=== PATIENT | male | born 2000 | race Caucasian/White ===

== ENCOUNTER 2021-10-21 01:17 | Inpatient (IN) ==
[2021-10-21] MEDS ORDERED: SODIUM CHLORIDE 0.9% 1000ML 1,000 ML IV STA (01:27)
--- NOTE | 2021-10-21 01:51 | Emergency Department Note ---
Impression & Plan Elevated troponin ADMIT ED Provider Note HPI: The patient is a 21-year-old male with history of tetralogy of Fallot, status post pulmonic valve replacement about 3 years ago, who presents the emergency department with a chief complaint of heart palpitations. Patient states that he was playing basketball earlier this evening and felt a sensation as if his heart was racing. He states this lasted approximately 2 hours, he went back to his apartment and drink some water. He had episode of nausea and vomiting. Patient states he then decided to come to the emergency department. On arrival here to the ED he was noted to be tachycardic at about 123, he had an episode of vomiting in triage and tells me that he "passed out". On my initial assessment the patient is resting comfortably in bed, states he is feeling improved, his heart rate is in the 70s, he is saturating well on room air on my initial assessment. He denies any chest pain throughout any of these episodes, denies any current chest pain or shortness of breath. 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, he tells me he is on sotalol and takes a baby aspirin daily. Patient tells me he is on the sotalol for an arrhythmia but he is unsure of what it is, states he has had electrophysiology studies done previously and they were not able to "recreate the arrhythmia" and therefore he is unsure of what exactly his arrhythmia is. Patient has been here in the emergency department before for various issues and in our chart it does say he has a history of supraventricular tachycardia. ROS: -Cardio: Palpitations -GI: N/V *10 point review systems was conducted and is otherwise negative unless stated above *Outpatient medications and allergy history reviewed PE: General: Alert, NAD HEENT: Normocephalic, atraumatic Eyes: Extraocular eye movement is intact, no scleral erythema Pulmonary: Clear to auscultation bilaterally, no wheezing Cardio: Regular rate and rhythm GI: Abdomen is soft, nontender : No suprapubic tenderness MSK: No evidence of trauma or malformation of the extremities, no edema Skin: No evidence of rash Neuro: Alert, no focal deficits Psychiatric: Cooperative monitoring tech: - An order was placed for continuous cardiac monitoring - Patient was noted to be in sinus rhythm with rate of 77 Preliminary Findings Only See Final Report For Complete Findings CTA CHEST: Stent noted at the pulmonary outflow tract. Right aortic arch. Mildly limited exam for pulmonary emboli given respiratory motion artifact. No visualized pulmonary emboli. Radiologist: Ender Faustin MD CT ABDOMEN & PELVIS With Contrast: Diffuse gallbladder wall thickening with pericholecystic fluid. Findings may be due to cholecystitis. Associated with this is periportal edema which is likely reactive. Consider HIDA imaging. Additional perihepatic ascites which is nonspecific. The appendix is not definitively identified. No evidence of right lower quadrant inflammatory straining. Mild pelvic free fluid which is nonspecific. Radiologist: Ender Faustin MD US GALLBLADDER: Asymmetric gallbladder wall thickening measuring up to 9 mm which may be due to adenomyomatosis. Gallbladder wall edema also possible. No biliary dilatation. Otherwise, no acute findings. Radiologist: Ender Faustin MD EKG: #1 Rate: 69 Rhythm: Sinus rhythm Intervals: Within normal limits ST changes: No ST elevation, mild ST depressions noted in the lateral leads Time: 0137 EKG: #2 Rate: 66 Rhythm: Normal sinus rhythm Intervals: Within normal limits ST changes: No ST elevation Time: 0151 Medical Decision Making: Patient presented to the emergency department with a chief complaint of palpitations, he has a history of SVT, has a history of Tetralogy of Fallot, he is noted to have an artificial pulmonic valve, patient tells me he takes sotalol as an antiarrhythmic daily, states that he also takes an aspirin daily. He is otherwise not on any medications. By the time I assessed the patient in the room, his heart rate is within normal limits, he tells me he is beginning to feel improved. Denies any abdominal pain, denies any chest pain, he is saturating well on room air on my initial assessment. Patient tells me he had a brief episode of syncope in triage tonight. IV was established, lab work ordered, patient was given an IV fluid bolus. He denies any nausea or chest pain, denies any shortness of breath. Lab work shows evidence of slight leukocytosis of 12.4, patient is also noted to have a creatinine elevation of 1.64, he is noted to have a moderate transaminitis and elevated bilirubin at 1.7. Patient states he did have 2 episodes of vomiting earlier this evening although he states that he gagged himself because he was feeling "bloated". Troponin is noted to be elevated at 0.48, patient states he has had troponin elevations in the past associated with his SVT episodes. He denies any active chest pain, his EKG initially showed some apparent ST depressions in the lateral leads although repeat EKG performed about 14 minutes later does not show any of these changes, no ST elevation. D-dimer is elevated therefore CT angiography of the chest was obtained, this does not show any evidence of pulmonary embolism. CT imaging of the abdomen and pelvis was obtained given the transaminitis and vomiting, this initially shows evidence of what appears to be acute cholecystitis with some surrounding periportal edema, ultrasound imaging of the gallbladder was also obtained and this does not show any evidence of acute cholecystitis. Patient does not have any right upper quadrant tenderness. I did discuss case with on-call general surgery midlevel provider, Alin Mitchell, who did evaluate the patient at the bedside here. At this time I have lower suspicion for acute cholecystitis, will plan for gastroenterology consultation while patient is admitted to the hospital. Repeat troponin is ordered, this did result increasing to 1.39, patient remains asymptomatic, denies any chest pain or shortness of breath. I did at this point discussed the case with on-call interventional cardiology, Dr. Walton, given that the patient is asymptomatic and thought is likely that his troponin elevated in the setting of demand ischemia from underlying SVT that was prolonged, Dr. Walton is in agreement that the patient does not require an emergent cardiac catheterization at this point. He will evaluate the patient this morning in consultation. We Will order heparin drip now given uptrending troponin, I discussed all the above findings with the patient he is in agreement for a dmission for further management. Patient was admitted in stable condition. * CRITICAL CARE TIME: (45) minutes -Initiation of heparin drip in the setting of elevated troponin and sensation of palpitations, time spent at bedside, interpretation of diagnostic studies, dis cussion with other physicians including interventional cardiology and midlevel provider for general surgery, arrangement of admission and discussion with hospitalist service Diagnosis: 1. Elevated troponin 2. Acute kidney injury 3. Transaminitis 4. Elevated bilirubin 5. Vomiting 6. Syncope 7. History of SVT Disposition: ADMIT Eric Morley DO Emergency Medicine Past Med/Surg History Medical History H/O supraventricular tachycardia Long-term use of aspirin therapy Surgical History Heart valve replaced Social History Smoking Status: Never smoker Feels Safe at Home: Yes Allergies Allergies Allergy/AdvReac Type Severity Reaction Status Date / Time cephalexin [From Keflex] Allergy Unknown Unknown Verified 10/21/21 02:28 Home Meds Home Medications Medication Instructions Recorded Confirmed sotalol 80 mg tablet 40 mg PO DAILY 05/26/19 10/21/21 aspirin 81 mg tablet,delayed 81 mg PO DAILY 10/21/21 10/21/21 release Results & Data (ED) Vital Signs Vital Signs - 24 hr 10/21/21 01:22 10/21/21 01:40 10/21/21 02:00 Temperature 36.3 C L Temperature Source Temporal Artery Scan Pulse Rate 123 H Pulse Rate [Apical] 70 66 Respiratory Rate 19 22 20 Respiratory Effort / Characteristics Non-Labored Spontaneous Non-Labored Spontaneous Non-Labored Spontaneous Respiratory Depth Normal Normal Normal Respiratory Pattern Blood Pressure [Right Arm] 129/86 130/97 Blood Pressure Mean [Right Arm] 100 108 Pulse Oximetry 91 100 100 Oxygen Delivery Method Room Air Room Air Room Air Sepsis Recent Fever Within 48 Hours No Sepsis New/Unexplained Change in Mental Status N/A Sepsis Action Taken by Nursing No Action Required 10/21/21 03:03 10/21/21 04:00 Temperature Temperature Source Pulse Rate Pulse Rate [Apical] 74 58 L Respiratory Rate 18 18 Respiratory Effort / Characteristics Non-Labored Spontaneous Non-Labored Spontaneous Respiratory Depth Normal Normal Respiratory Pattern Regular Blood Pressure [Right Arm] 132/87 130/83 Blood Pressure Mean [Right Arm] 102 98 Pulse Oximetry 100 98 Oxygen Delivery Method Room Air Room Air Sepsis Recent Fever Within 48 Hours Sepsis New/Unexplained Change in Mental Status Sepsis Action Taken by Nursing Laboratory Data Result diagrams: 10/21/21 01:35 10/21/21 01:35 Lab Results 02/10/22 02/10/22 02/10/22 Range/Units 01:35 01:35 01:35 WBC 12.44 H (4.8-10.8) K/uL RBC 5.01 (4.7-6.1) M/uL Hgb 15.3 (14.0-18.0) g/dL Hct 44.4 (42-52) % MCV 88.6 (80-100) fL MCH 30.5 (25-34) pg MCHC 34.5 (32-36) g/dL RDW Std Deviation 40.5 (36.4-46.3) fL RDW Coeff of Patricia 12.7 (11.5-14.5) % Plt Count 251 (130-400) K/uL MPV 10.2 (7.4-10.4) fL Immature Gran % (Auto) 0.3 % Neut % (Auto) 77.5 % Lymph % (Auto) 13.7 % Duchesne % (Auto) 7.0 % Eos % (Auto) 1.3 % Baso % (Auto) 0.2 % Neut # (Auto) 9.63 H (1.4-6.5) K/uL Lymph # (Auto) 1.71 (1.2-3.4) K/uL Duchesne # (Auto) 0.87 H (0.11-0.59) K/uL Eos # (Auto) 0.16 (0-0.5) K/uL Baso # (Auto) 0.03 (0-0.2) K/uL Immature Gran # (Auto) 0.04 H (0.00-0.02) K/uL PT 10.9 (9.0-12.0) Seconds INR 1.1 (0.9-1.1) APTT 22.5 (21.0-31.0) Seconds PTT Ratio 0.9 D-Dimer Cancelled 1290 H* Sodium (136-145) mmol/L Potassium (3.5-5.1) mmol/L Chloride (98-107) mmol/L Carbon Dioxide (21-32) mmol/L Anion Gap (3-11) BUN (6-23) mg/dl Creatinine (0.6-1.4) mg/dl Est Cr Clr Drug Dosing Est GFR ( Amer) ml/min Est GFR (Non-Af Amer) ml/min BUN/Creatinine Ratio (10-20) Glucose (70-99(Fasting)) mg/dl Calcium (8.5-10.1) mg/dl Magnesium (1.7-2.4) mg/dl Total Bilirubin (0.2-1.0) mg/dl AST (13-39) U/L ALT (7-52) U/L Alkaline Phosphatase (34-104) U/L Troponin I (0-0.04) ng/ml Total Protein (6.0-8.3) gm/dl Albumin (3.4-5.0) gm/dl Globulin (2.5-4.0) gm/dl Albumin/Globulin Ratio (0.9-2) Lipase (11-82) U/L TSH (0.300-4.500) uIu/ml Free T4 (0.61-1.60) ng/dl SARS-CoV-2, RNA, NAAT (NEGATIVE) 10/21/21 10/21/21 10/21/21 Range/Units 01:35 02:32 02:32 WBC (4.8-10.8) K/uL RBC (4.7-6.1) M/uL Hgb (14.0-18.0) g/dL Hct (42-52) % MCV (80-100) fL MCH (25-34) pg MCHC (32-36) g/dL RDW Std Deviation (36.4-46.3) fL RDW Coeff of Patricia (11.5-14.5) % Plt Count (130-400) K/uL MPV (7.4-10.4) fL Immature Gran % (Auto) % Neut % (Auto) % Lymph % (Auto) % Duchesne % (Auto) % Eos % (Auto) % Baso % (Auto) % Neut # (Auto) (1.4-6.5) K/uL Lymph # (Auto) (1.2-3.4) K/uL Duchesne # (Auto) (0.11-0.59) K/uL Eos # (Auto) (0-0.5) K/uL Baso # (Auto) (0-0.2) K/uL Immature Gran # (Auto) (0.00-0.02) K/uL PT (9.0-12.0) Seconds INR (0.9-1.1) APTT (21.0-31.0) Seconds PTT Ratio D-Dimer Sodium 132 L (136-145) mmol/L Potassium 4.0 (3.5-5.1) mmol/L Chloride 100 (98-107) mmol/L Carbon Dioxide 21 (21-32) mmol/L Anion Gap 11 (3-11) BUN 27 H (6-23) mg/dl Creatinine 1.64 H (0.6-1.4) mg/dl Est Cr Clr Drug Dosing Not Reportable Est GFR ( Amer) 68.3 ml/min Est GFR (Non-Af Amer) 58.9 ml/min BUN/Creatinine Ratio 16.5 (10-20) Glucose 194 H (70-99(Fasting)) mg/dl Calcium 9.0 (8.5-10.1) mg/dl Magnesium 1.7 (1.7-2.4) mg/dl Total Bilirubin 1.7 H (0.2-1.0) mg/dl AST 411 H (13-39) U/L ALT 235 H (7-52) U/L Alkaline Phosphatase 101 (34-104) U/L Troponin I 0.48 H* (0-0.04) ng/ml Total Protein 6.7 (6.0-8.3) gm/dl Albumin 4.3 (3.4-5.0) gm/dl Globulin 2.4 L (2.5-4.0) gm/dl Albumin/Globulin Ratio 1.8 (0.9-2) Lipase 23 (11-82) U/L TSH 7.185 H (0.300-4.500) uIu/ml Free T4 1.12 (0.61-1.60) ng/dl SARS-CoV-2, RNA, NAAT (NEGATIVE) 10/21/21 10/21/21 Range/Units 03:40 04:05 WBC (4.8-10.8) K/uL RBC (4.7-6.1) M/uL Hgb (14.0-18.0) g/dL Hct (42-52) % MCV (80-100) fL MCH (25-34) pg MCHC (32-36) g/dL RDW Std Deviation (36.4-46.3) fL RDW Coeff of Patricia (11.5-14.5) % Plt Count (130-400) K/uL MPV (7.4-10.4) fL Immature Gran % (Auto) % Neut % (Auto) % Lymph % (Auto) % Duchesne % (Auto) % Eos % (Auto) % Baso % (Auto) % Neut # (Auto) (1.4-6.5) K/uL Lymph # (Auto) (1.2-3.4) K/uL Duchesne # (Auto) (0.11-0.59) K/uL Eos # (Auto) (0-0.5) K/uL Baso # (Auto) (0-0.2) K/uL Immature Gran # (Auto) (0.00-0.02) K/uL PT (9.0-12.0) Seconds INR (0.9-1.1) APTT (21.0-31.0) Seconds PTT Ratio D-Dimer Sodium (136-145) mmol/L Potassium (3.5-5.1) mmol/L Chloride (98-107) mmol/L Carbon Dioxide (21-32) mmol/L Anion Gap (3-11) BUN (6-23) mg/dl Creatinine (0.6-1.4) mg/dl Est Cr Clr Drug Dosing Est GFR ( Amer) ml/min Est GFR (Non-Af Amer) ml/min BUN/Creatinine Ratio (10-20) Glucose (70-99(Fasting)) mg/dl Calcium (8.5-10.1) mg/dl Magnesium (1.7-2.4) mg/dl Total Bilirubin (0.2-1.0) mg/dl AST (13-39) U/L ALT (7-52) U/L Alkaline Phosphatase (34-104) U/L Troponin I 1.39 H* (0-0.04) ng/ml Total Protein (6.0-8.3) gm/dl Albumin (3.4-5.0) gm/dl Globulin (2.5-4.0) gm/dl Albumin/Globulin Ratio (0.9-2) Lipase (11-82) U/L TSH (0.300-4.500) uIu/ml Free T4 (0.61-1.60) ng/dl SARS-CoV-2, RNA, NAAT NEGATIVE (NEGATIVE) Administered Medications Discontinued Medications Aspirin (Aspirin Chew 324 Mg) 324 mg PO NOW STA Stop: 10/21/21 02:51 Last Admin: 10/21/21 03:02 Dose: 324 mg Documented by: [id number] Sodium Chloride (Nss 1000ml) 1,000 mls @ 999 mls/hr IV .Q1H1M STA Stop: 10/21/21 02:27 Last Infusion: 10/21/21 02:44 Dose: 0 mls/hr Documented by: [id number] Admin: 10/21/21 01:40 Dose: 999 mls/hr Documented by: [id number] Sodium Chloride (Nss 1000ml) 1,000 mls @ 999 mls/hr IV .Q1H1M ONE Stop: 10/21/21 03:28 Last Infusion: 10/21/21 03:46 Dose: 0 mls/hr Documented by: [id number] Admin: 10/21/21 02:38 Dose: 999 mls/hr Documented by: [id number] Ioversol (Optiray 320 125ml) 120 ml IV ONCE ONE Stop: 10/21/21 03:11 Last Admin: 10/21/21 03:13 Dose: 1 ml Documented by: [id number] Discharge Plan Visit Data Chief Complaint: Tachycardia Stated Complaint: HEART RATE 200,HAS BEENS SINCE ABOUT 23:00 ED Provider: Eric Morley Discharge Problem: Elevated troponin Forms Stand Alone Forms: [facility] Prescriptions Prescriptions: No Action sotalol 80 mg Tablet 40 mg PO DAILY RF: 0 aspirin [Aspir-Low] 81 mg Tablet,Delayed Release (Dr/Ec) 81 mg PO DAILY RF: 0 Referrals Referrals: PCP,NO [Physician] -
[2021-10-21 01:55] LABS: Basophils # (auto) 0.03 K/uL (0-0.2); Basophils % (auto) 0.2 %; Eosinophils # (auto) 0.16 K/uL (0-0.5); Eosinophils % (auto) 1.3 %; Hematocrit (blood only) 44.4 % (42-52); Hemoglobin 15.3 g/dL (14.0-18.0); Immature Granulocytes # (auto) 0.04 K/uL (0.00-0.02); Immature Granulocytes % (auto) 0.3 %; Lymphocytes # (auto) 1.71 K/uL (1.2-3.4); Lymphocytes % (auto) 13.7 %; Mean Corpuscular Hemoglobin 30.5 pg (25-34); Mean Corpuscular Hgb Conc 34.5 g/dL (32-36); Mean Corpuscular Volume 88.6 fL (80-100); Mean Platelet Volume 10.2 fL (7.4-10.4); Monocytes # (auto) 0.87 K/uL (0.11-0.59); Neutrophils # (auto) 9.63 K/uL (1.4-6.5); Neutrophils % (auto) 77.5 %; Platelet Count 251 K/uL (130-400); RDW Coefficient of Variation 12.7 % (11.5-14.5); RDW Standard Deviation 40.5 fL (36.4-46.3); Red Blood Count 5.01 M/uL (4.7-6.1); White Blood Count 12.44 K/uL (4.8-10.8)
[2021-10-21 02:13] LABS: INR 1.1 (0.9-1.1); Partial Thromboplastin Ratio 0.9; Partial Thromboplastin Time 22.5 Seconds (21.0-31.0); Prothrombin Time 10.9 Seconds (9.0-12.0)
[2021-10-21 02:18] LABS: Alanine Aminotransferase 235 U/L (7-52); Albumin Globulin Ratio 1.8 (0.9-2); Albumin Level 4.3 gm/dl (3.4-5.0); Alkaline Phosphatase 101 U/L (34-104); Anion Gap 11 (3-11); Aspartate Aminotransferase 411 U/L (13-39); BUN Creatinine Ratio 16.5 (10-20); Bilirubin,Total 1.7 mg/dl (0.2-1.0); Blood Urea Nitrogen 27 mg/dl (6-23); Carbon Dioxide 21 mmol/L (21-32); Chloride 100 mmol/L (98-107); Est GFR (African American) 68.3 ml/min; Est GFR (Non-African American) 58.9 ml/min; Globulin 2.4 gm/dl (2.5-4.0); Glucose 194 mg/dl (70-99(Fasting)); Lipase 23 U/L (11-82); Sodium 132 mmol/L (136-145); Total Protein 6.7 gm/dl (6.0-8.3)
[2021-10-21 02:27] LABS: D Dimer 1290 ug/L FEU (0-500)
[2021-10-21] MEDS ORDERED: SODIUM CHLORIDE 0.9% 1000ML 1,000 ML IV ONE (02:28)
[2021-10-21 02:50] LABS: Troponin I 0.48 ng/ml (0-0.04)
[2021-10-21] MEDS ORDERED: ASPIRIN CHEW 324 MG PO STA (02:50)
[2021-10-21] MEDS ORDERED: OPTIRAY 320 125ml IV ONE (03:10)
[2021-10-21 03:30] LABS: Thyroid Stimulating Hormone 7.185 uIu/ml (0.300-4.500)
[2021-10-21 04:07] LABS: T4 Free Thyroxine 1.12 ng/dl (0.61-1.60)
--- NOTE | 2021-10-21 04:39 | Surgery Consultation ---
Date of Consultation October 21, 2021 Assessment & Plan (1) Elevated LFTs: I discussed with the treating emergency room physician and the patient is being admitted on the hospitalist service due to his underlying cardiac presentation. He feels that the patient's elevated troponin may be likely to demand ischemia from patient's prolonged episode of tachycardia. Concerning the patient's elevated LFTs we recommend proceeding as follows: Patient does not have any evidence of cholecystitis on physical exam as noted previously in this note the patient's abdominal exam is entirely benign and the patient also does not report any symptoms consistent with cholecystitis (no abdominal pain, no fever; previous vomiting was self-induced) The patient's abdominal CT scan findings and abdominal ultrasound are nonspecific cholecystitis, therefore GI consultation is recommended Clinical suspicion for cholecystitis remains consideration can be given to performing a HIDA scan If additional evaluation suspicious for cholecystitis, any potential surgical invention would need to be delayed until patient's cardiac situation is considered stabilized Supervising Physician Co-Signing Physician Notes I personally saw and evaluated the patient with Servando Mitchell PA-C and agree with the assessment and plan 21-year-old male with incidental finding of gallbladder adenomyomatosis here with cardiac complaints CT, ultrasound images and results reviewed, no cholelithiasis noted Clinically he has no signs of acute cholecystitis I would recommend a GI consult to work-up elevation of his LFTs No plans for any cholecystectomy at this time We will have him follow-up with me as an outpatient to discuss his gallbladder adenomyomatosis History of Present Illness Reason for Consultation: Cholecystitis History of Present Illness This is a 21-year-old male 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 Patient has a complex medical history as he noted he had Tetralogy of Fallot as a child. The patient said that he did require open heart surgery as a child but he is unsure of the exact procedure that was performed and then he notes at age 18 he had a pulmonary valve replacement. Patient further relates that he does have an underlying history of SVT for which he takes sotalol. Patient notes in the past 4 years he has had approximately 4 episodes of supraventricular tachycardia that usually self resolves without any active intervention. Patient reports he was playing basketball yesterday afternoon when he noticed palpitations. As he has had this before he did not immediately seek medical attention, but his palpitations persisted for greater than 2.5 hours so he decided to come to the emergency department. While in the emergency department waiting room the patient reportedly had a syncopal episode that lasted a few seconds. He did not fall or hit his head. With his current presentation the patient specifically denied any chest pain or shortness of breath. He also denied any lightheadedness but again had a syncopal episode and reported palpitations. Patient did add that when his tachycardia and palpitations began he began to drink large volume of water in order to stay hydrated. He notes this is water made him feel bloated so he self-induced vomiting x2 and felt somewhat better. In the emergency department the patient had EKG that showed ST depressions in leads I, II, V4, V5, V6. Labs were performed showing a white blood cell count of 12.4. Hemoglobin, hematocrit, and platelet count were all within normal range. A D-dimer was elevated at 1290. Chemistry profile showed sodium was 132 potassium was 4.0 BUN and creatinine were noted to be 27 and 1.6. Patient was noted to have elevated LFTs with a total bilirubin of 1.7, and AST of 411, and an ALT of 235. Alkaline phosphatase was within the normal range. Patient was also noted to have an elevated TSH at 7.1. His free T4 was within normal range. Patient's initial troponin was elevated at 0.48. Covid test was performed and was noted be negative. Chest x-ray showed no evidence of pneumonia. Because of the patient's elevated D-dimer a CT scan of the chest was pursued which was negative for pulmonary emboli. Because of the patient's elevated LFTs treat emergency physician ordered a CT scan of the abdomen as well as an ultrasound. CT scan of the abdomen was performed first that showed diffuse gallbladder wall thickening with pericholecystic fluid there is some associated periportal edema that was felt to be reactive. Nonspecific perihepatic ascites was noted. Pending radiologist did not feel that this definitively showed cholecystitis and suggested considering a HIDA scan. Following this study a gallbladder ultrasound was performed that showed an asymmetric gallbladder with wall thickening of approximate 9 mm that was felt to be possibly due to adenomyomatosis. Small amount of gallbladder edema was suggested with no biliary dilatation. No other findings for acute cholecystitis were noted on patient's abdominal ultrasound. General surgery was requested to see the patient due to his gallbladder wall findings. I did question the patient about this. He notes at no time did he ever experience any abdominal pain. He said other than his self-induced vomiting he has not had any additional nausea or vomiting. I questioned patient about his daily life for the past several weeks and he reports no episodes of postprandial abdominal pain. He denies any fevers, shakes, chills. [place] any prior abdominal surgeries. Time of my interview with the patient he had returned to normal sinus rhythm and he was resting comfortably in bed without any complaints, specifically no abdominal pain. Allergies Allergy/AdvReac Type Severity Reaction Status Date / Time cephalexin [From Keflex] Allergy Unknown Unknown Verified 10/21/21 02:28 Home Medications Medication Instructions Recorded Confirmed Type sotalol 80 mg tablet 40 mg PO DAILY 05/26/19 10/21/21 History aspirin 81 mg tablet,delayed 81 mg PO DAILY 10/21/21 10/21/21 History release Patient History Medical History (Updated 10/21/21 @ 05:25 by Christie Rivers DO) H/O supraventricular tachycardia Long-term use of aspirin therapy Tetralogy of Fallot Surgical History (Updated 10/21/21 @ 05:12 by Christie Rivers DO) Heart valve replaced History of heart surgery Social History (Updated 10/21/21 @ 05:12 by Christie Rivers DO) Smoking Status: Never smoker Hx Alcohol Use: Yes Alcohol type: beer Hx Substance Use: No Preferred Language: Mongolian Communication Ability: Effective Maintenance Leader Required: No Beliefs That Will Affect Care: None Current Living Situation: Alone Current Living Situation Comment: [employer] student Feels Safe at Home: Yes Safety Concerns: Feels Safe At This Time Assistive Devices: None Review of Systems Constitutional: no fever and no chills Eyes: no diplopia Ear, Nose, Mouth, Throat: no ear pain Respiratory: no cough and no dyspnea Cardiovascular: as per Subjective / HPI, + palpitations and + syncope Gastrointestinal: + bloating and + vomiting (Self-induced); no abdominal pain Genitourinary: no dysuria Musculoskeletal: no back pain Integumentary: no rash Neurologic: no localized weakness Physical Exam Constitutional: well developed and well nourished; no acute distress Eyes: no conjunctival abnormality ENMT: Ears: no hearing impairment and no external ear abnormality Mouth: no oropharynx abnormality Neck: trachea midline Respiratory: normal respiratory effort, lungs clear to auscultation Cardiovascular: Rate/Rhythm: regular rate and regular rhythm Heart Sounds: + murmur Gastrointestinal (Abdomen): Dilan exam is entirely benign. The abdomen is soft, nondistended, and nontender to palpation. There is specifically no pain with palpation of the right upper quadrant with deep palpation. Painter sign is noted to be negative. Musculoskeletal: No calf tenderness. No gross orthopedic abnormalities. Skin: no rashes Neurologic: moves all extremities Psychiatric: A+Ox3, euthymic affect Results & Data ([facility]) Vital Signs (Past 12 Hours) Vital Signs Temp Pulse Pulse Resp BP Pulse Ox 10/21/21 04:00 58 L 18 130/83 98 10/21/21 03:03 74 18 132/87 100 10/21/21 02:00 66 20 130/97 100 10/21/21 01:40 70 22 129/86 100 10/21/21 01:22 36.3 C L 123 H 19 91 PG Care Time/CCT Total # of Minutes Spent Total Time Spent with Patient: Total time spent is greater than 50% in coordination of care (as documented) at patient's floor/unit and/or counseling patient: Coding Level of Care Code 54764 Inpt Consult Level 5 Diagnoses Elevated LFTs R79.89
[2021-10-21] MEDS ORDERED: Heparin IV Adult Wt-Based Standard WITH Bolus Protocol IV STA (04:56)
--- NOTE | 2021-10-21 05:03 | History & Physical Report ---
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 Found with elevation of troponin and EKG changes. History of SVT with appx 4 episodes of palpitations in the past. EKG with NSR at 69bpm. Shortened MN interval at 102. No delta wave Electrolytes are optimized -Admit to medical with telemetry -Check 2D echo -Check ESR and CRP -Trend troponin -Continue Sotalol (2) Elevated troponin: Plan: Possibly secondary to supply-demand mismatch in setting of prolonged palpitations. Consider myocarditis with elevation of WBC count + troponin. Patient denies recent illness, vaccination, fever, chills, chest pain. -Heparin gtt initiated in ER - will continue for now -Cardiology consultation appreciated -Continue to trend troponin to peak (3) Elevated LFTs: Plan: Patient with elevation of AST, ALT and Tbili. CT Abdomen by STAT rad concerning for acute cholecystitis which was not seen on US. Patient has had NO abdominal pain, fever, RUQ discomfort. Do not strongly suspect acute cholecystitis. -Check ferritin, acetaminophen, acute hepatitis panel -Repeat LFTs -Consider HIDA scan, GI consultation pending results (4) SNEHA (acute kidney injury): Plan: Elevation of BUN to 27, Cr to 1.64 from baseline of 14 and 1.05. -LR at 125mL/hr x 1 liter -Repeat labs at 12:00 Plan: F/E/N - LR at 125mL/hr x 1, electrolytes WNL - will give 1gm Mg for level of 1.7, regular diet as tolerated Ppx - Heparin gtt Code - Full Dispo - Admit to medical with telemetry History of Present Illness Chief Complaint: Palpitations Primary Care Provider: [facility] Christian Brooks is a 21yo C male with history of Tetralogy of Fallot as a child s/p surgical repair, s/p pulmonic valve replacement at age 18. He has history of SVT for which he takes daily Sotalol as well as ASA. He has had 4 episodes of tachycardia over the last 4 years that has been self limiting. Patient was playing basketball last night when he felt his heart racing. This started around 23:00. He returned to his apartment and drank a lot of water to try to get the palpitations to stop. After drinking the water he felt bloated and nauseated so he induced vomiting x 1 episode. He presents to the ER due to prolonged duration of palpitations. Patient had a second episode of vomiting in the waiting room. He also reports a brief episode of lightheadedness and syncope which lasted only a few seconds. No head trauma. He denies chest pain, cough, SOB. Denies abdominal pain. Had some nausea and vomiting x 2 as above, otherwise, no abdominal complaints. Denies fever, chills, NELSON, malaise. Palpitations resolved around 01:15. Upon arrival patient tachycardic with HR of 123. His initial EKG showed ST depressions in leads I, II, V4-V6. Lab results as below, troponin elevated at 0.48 --> 1.39. Patient with abnormals LFTs - NOU=727, BCQ=412, Tbili=1.7. CT of the Abdomen and pelvis originally concerning for acute cholecystitis. Ultrasound does not support this. General Surgery was consulted re: LFT abnormality and possible cholecystitis Patient is resting comfortably. Sinus bradycardia noted on monitor. Has no complaints at this time. ER Course: ASA 324mg, NSS x 2L, Heparin gtt Allergies Allergy/AdvReac Type Severity Reaction Status Date / Time cephalexin [From Keflex] Allergy Unknown Unknown Verified 10/21/21 02:28 Home Medications Medication Instructions Recorded Confirmed Type sotalol 80 mg tablet 40 mg PO DAILY 05/26/19 10/21/21 History aspirin 81 mg tablet,delayed 81 mg PO DAILY 10/21/21 10/21/21 History release Past Med/Surg History Medical History (Updated 10/21/21 @ 05:25 by Christie Rivers DO) H/O supraventricular tachycardia Long-term use of aspirin therapy Tetralogy of Fallot Surgical History (Updated 10/21/21 @ 05:12 by Christie Rivers DO) Heart valve replaced History of heart surgery Social History (Updated 10/21/21 @ 05:12 by Christie Rivers DO) Smoking Status: Never smoker Hx Alcohol Use: Yes Hx Substance Use: No Feels Safe at Home: Yes Review of Systems Review of Systems: All systems reviewed & are unremarkable except as noted in HPI & below Physical Exam Physical Exam: General: patient resting comfortably, NAD, non-toxic in appearance, AA&O x 4 Skin: warm, dry, intact, no rashes or lesions HEENT: NC/AT, PERRL, EOMI, anicteric sclera, conjunctiva without injection, external ear normal to inspection and nontender, nares patent, moist mucus membranes, dentition intact, no oropharyngeal lesions, neck supple, trachea midline, no LAD, no thyromegaly, no JVD Heart: +S1/S2, regular, 3/6 RACHEL at LUSB and sternal border Lungs: equal air entry bilaterally, no rales/rhonchi/wheezes Abd: +BS, soft, NT/ND, no masses/organomegaly/ascites, no RUQ tenderness Ext: warm, 2+ pulses in UE/LE bilaterally, no clubbing/cyanosis or edema Neuro: nonfocal, patient AA&O x 4, speech intact, no facial droop, moving all extremities on command with equal strength 5/5 Results & Data Results & Data ([facility]) Vital Signs (Past 12 Hours) Vital Signs Temp Pulse Pulse Resp BP Pulse Ox 10/21/21 04:00 58 L 18 130/83 98 10/21/21 03:03 74 18 132/87 100 10/21/21 02:00 66 20 130/97 100 10/21/21 01:40 70 22 129/86 100 10/21/21 01:22 36.3 C L 123 H 19 91 Laboratory Results Laboratory Results WBC 12.44 K/uL (4.8-10.8) H 10/21/21 01:35 RBC 5.01 M/uL (4.7-6.1) 10/21/21 01:35 Hgb 15.3 g/dL (14.0-18.0) 10/21/21 01:35 Hct 44.4 % (42-52) 10/21/21 01:35 MCV 88.6 fL (80-100) 10/21/21 01:35 MCH 30.5 pg (25-34) 10/21/21 01:35 MCHC 34.5 g/dL (32-36) 10/21/21 01:35 RDW Std Deviation 40.5 fL (36.4-46.3) 10/21/21 01:35 RDW Coeff of Patricia 12.7 % (11.5-14.5) 10/21/21 01:35 Plt Count 251 K/uL (130-400) 10/21/21 01:35 MPV 10.2 fL (7.4-10.4) 10/21/21 01:35 Immature Gran % (Auto) 0.3 % 10/21/21 01:35 Neut % (Auto) 77.5 % 10/21/21 01:35 Lymph % (Auto) 13.7 % 10/21/21 01:35 [place] % (Auto) 7.0 % 10/21/21 01:35 Eos % (Auto) 1.3 % 10/21/21 01:35 Baso % (Auto) 0.2 % 10/21/21 01:35 Neut # (Auto) 9.63 K/uL (1.4-6.5) H 10/21/21 01:35 Lymph # (Auto) 1.71 K/uL (1.2-3.4) 10/21/21 01:35 [place] # (Auto) 0.87 K/uL (0.11-0.59) H 10/21/21 01:35 Eos # (Auto) 0.16 K/uL (0-0.5) 10/21/21 01:35 Baso # (Auto) 0.03 K/uL (0-0.2) 10/21/21 01:35 Immature Gran # (Auto) 0.04 K/uL (0.00-0.02) H 10/21/21 01:35 PT 10.9 Seconds (9.0-12.0) 10/21/21 01:35 INR 1.1 (0.9-1.1) 10/21/21 01:35 APTT 22.5 Seconds (21.0-31.0) 10/21/21 01:35 PTT Ratio 0.9 10/21/21 01:35 D-Dimer 1290 ug/L FEU (0-500) H* 10/21/21 01:35 D-Dimer Cancelled 10/21/21 01:35 Sodium 132 mmol/L (136-145) L 10/21/21 01:35 Potassium 4.0 mmol/L (3.5-5.1) 10/21/21 01:35 Chloride 100 mmol/L (98-107) 10/21/21 01:35 Carbon Dioxide 21 mmol/L (21-32) 10/21/21 01:35 Anion Gap 11 (3-11) 10/21/21 01:35 BUN 27 mg/dl (6-23) H 10/21/21 01:35 Creatinine 1.64 mg/dl (0.6-1.4) H 10/21/21 01:35 Est Cr Clr Drug Dosing Not Reportable 10/21/21 01:35 Est GFR ( Amer) 68.3 ml/min 10/21/21 01:35 Est GFR (Non-Af Amer) 58.9 ml/min 10/21/21 01:35 BUN/Creatinine Ratio 16.5 (10-20) 10/21/21 01:35 Glucose 194 mg/dl (70-99(Fasting)) H 10/21/21 01:35 Calcium 9.0 mg/dl (8.5-10.1) 10/21/21 01:35 Magnesium 1.7 mg/dl (1.7-2.4) 10/21/21 02:32 Total Bilirubin 1.7 mg/dl (0.2-1.0) H 10/21/21 01:35 AST 411 U/L (13-39) H 10/21/21 01:35 ALT 235 U/L (7-52) H 10/21/21 01:35 Alkaline Phosphatase 101 U/L (34-104) 10/21/21 01:35 Troponin I 1.39 ng/ml (0-0.04) H* 10/21/21 04:05 Total Protein 6.7 gm/dl (6.0-8.3) 10/21/21 01:35 Albumin 4.3 gm/dl (3.4-5.0) 10/21/21 01:35 Globulin 2.4 gm/dl (2.5-4.0) L 10/21/21 01:35 Albumin/Globulin Ratio 1.8 (0.9-2) 10/21/21 01:35 Lipase 23 U/L (11-82) 10/21/21 01:35 TSH 7.185 uIu/ml (0.300-4.500) H 10/21/21 02:32 Free T4 1.12 ng/dl (0.61-1.60) 10/21/21 02:32 SARS-CoV-2, RNA, NAAT NEGATIVE (NEGATIVE) 10/21/21 03:40 Diagnostic Findings CTA Chest - stent noted at the pulmonary outflow tract. Right aortic arch. Mildlyl limited exam for pulmonary emboli given respiratory motion artifact. No visualized pulmonary emboli. CT Abdomen and Pelvis - Diffuse gallbladder wall thickening with pericholecystic fluid. FIndings may be due to cholecystitis. Associated with this is periportal edema which is likely reactive. Consider HIDA imaging. Additional perihepatic ascites which is nonspecific. The appendix is not definitively identified. No evidence of righ lower quadrant inflammatory straining. Mild pelvic free fluid which is nonspecific. US Gallbladder: Asymmetric gallbladder wall thickening measuring up to 9mm which may be due to adenomyomatosis. Gallbladder wall edema also possible. No biliary dilatation. Otherwise, no acute findings. ECG Additional Comments: EKG with SR at 69, right axis deviation, shortened MN interval at 102, ZCX=529, OFy=394, ST depressions in V3-V6, I and II PG Care Time/CCT Total # of Minutes Spent Total Time Spent with Patient: Total time spent is greater than 50% in coordination of care (as documented) at patient's floor/unit and/or counseling patient: Coding Level of Care Code 98320 Initial Inpt Care Lvl 3 Diagnoses Elevated troponin R77.8 Elevated LFTs R79.89 SNEHA (acute kidney injury) N17.9 Palpitations R00.2
[2021-10-21] MEDS ORDERED: HEPARIN SOD (PORCINE) 1000 UNIT/ML IV ONE (05:11)
[2021-10-21] MEDS ORDERED: HEPARIN SODIUM/DEXTROSE 25,000 UNITS/500 ML BAG IV SCH (05:15)
[2021-10-21] MEDS ORDERED: ONDANSETRON INJ 2 MG/ML 2 ML VIAL IV PRN (05:25)
[2021-10-21] MEDS ORDERED: LACTATED RINGER'S 1,000 ML IV SCH (05:25)
[2021-10-21] MEDS ORDERED: ACETAMINOPHEN 325 MG TAB PO PRN (05:25)
[2021-10-21] MEDS ORDERED: MAGNESIUM SULFATE / D5W 1 GM/100 ML BAG IV ONE (06:00)
--- NOTE | 2021-10-21 06:44 | XRay Report ---
XR chest 1V portable CLINICAL HISTORY: Atypical chest pain. COMPARISON STUDY: No previous studies for comparison. FINDINGS: Stent projects over the pulmonary outflow tract. There is no pneumothorax or pleural effusi on. There is no evidence for pulmonary edema or pneumonia. Mild cardiomegaly is noted. IMPRESSION: No acute cardiopulmonary findings. Cardiomegaly. ACT 112: Negative or not required by law. Electronically signed by: José Luis Dukes M.D. 10/21/2021 6:43 AM
[2021-10-21 06:58] LABS: C Reactive Protein < 0.50 mg/dl (0-0.5)
[2021-10-21 07:00] LABS: Ferritin 174.1 ng/ml (8-388)
--- NOTE | 2021-10-21 07:27 | Ultrasound Report ---
US gallbladder CLINICAL HISTORY: elevated LFTs, N/V COMPARISON STUDY: No previous studies for comparison. FINDINGS: Liver morphology is normal. No hepatic lesions are identified. There is no biliary ductal d ilatation. The common bile duct measures 3 mm in caliber. No gallstones are noted. There is no sonogr aphic Painter sign. Moderate gallbladder wall thickening is noted. Gallbladder wall measures 9 mm in t hickness. The gallbladder wall is edematous. There is no right hydronephrosis. Pancreas is unremarkab le by sonography. IMPRESSION: 1. No gallstones or biliary ductal dilatation. 2. Moderately thickened, edematous gallbladder wall. No sonographic Painter sign. Although nonspecifi c, these findings do not suggest acute cholecystitis. Etiologies such as hepatitis are within the dif ferential. ACT 112: Negative or not required by law. Electronically signed by: José Luis Dukes M.D. 10/21/2021 7:25 AM
--- NOTE | 2021-10-21 07:33 | CT Scan Report ---
CT ANGIOGRAPHY OF THE CHEST, PULMONARY EMBOLUS PROTOCOL CLINICAL HISTORY: Nausea and vomiting. Leukocytosis. COMPARISON STUDY: Chest radiograph performed earlier today. TECHNIQUE: Following IV administration of 120 mL of Optiray, helical axial images of the chest were o btained utilizing the pulmonary embolus protocol. Maximal intensity projections and sagittal and cor onal reformats were viewed on an independent 3D workstation. IV contrast was administered without co mplication. Automated exposure control was utilized for the study. A dose lowering technique was ut ilized adhering to the principles of ALARA. CT DOSE: 728.36 mGy.cm FINDINGS: Mild dilatation of the ascending aorta, measuring 4 cm is noted. There is no thoracic aorti c dissection Moderate cardiomegaly is noted. There is no pericardial effusion. Note is made of a righ t-sided aortic arch with mirror image branching. A vascular stent/prosthetic valve of the right ventr icular outflow tract is noted. No pulmonary emboli are identified the findings although subsegmental pulmonary arteries within the left lower lobe are suboptimally assessed due to respiratory motion. Th ere is no consolidation to suggest pneumonia. No pneumothorax or pleural effusion is noted. No acute fracture or suspicious lesion is identified within visualized portions of the bony thorax. Note is ma de of mild stranding and trace fluid within the right upper quadrant, better depicted on the CT of th e abdomen and pelvis which will be reported separately. IMPRESSION: 1. No pulmonary emboli identified. 2. 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 Mild dilatation of the ascending aorta, measuring 4 cm. No thoracic aortic dissection. 3. Vascular stent/prosthetic valve of the right ventricular outflow tract. 4. No acute process within the chest. ACT 112: Negative or not required by law. Electronically signed by: José Lius Dukes M.D. 10/21/2021 7:32 AM
--- NOTE | 2021-10-21 08:12 | CT Scan Report ---
CT abd pelvis IV con only CLINICAL HISTORY: N/V, leukocytosis, elevated LFTS TECHNIQUE: Helical axial images of the abdomen and pelvis were obtained and displayed. Automated dose lowering techniques and/or adjustment according to patient size were utilized for this exam. This e xam was performed with intravenous contrast. COMPARISON: None available at the time of this dictation. FINDINGS: Lower chest: No acute abnormality Liver: Periportal edema is seen. Gallbladder and biliary tree: The gallbladder wall thickening is seen, measuring approximately 3 mm, with prominent pericholecystic fluid. No definite cholelithiasis is seen. No intra- or extrahepatic b iliary ductal dilation. Pancreas: Unremarkable, no focal lesions. Spleen: Unremarkable. Adrenals: Unremarkable. Kidneys and ureters: Unremarkable. Bladder: Unremarkable. Reproductive organs: Unremarkable. Bowel: Unremarkable. Lymph nodes Retroperitoneal: Unremarkable. Mesenteric: Unremarkable. Pelvic: Unremarkable. Peritoneum: Normal. Vessels: Unremarkable. Abdominal wall: Unremarkable. Bones: Unremarkable. IMPRESSION: Gallbladder wall thickening and pericholecystic edema concerning for acute cholecystitis. Periportal edema is likely reactive. ACT 112: Negative or not required by law. Electronically signed by: Vincent Mahajan M.D. 10/21/2021 8:10 AM
[2021-10-21] MEDS ORDERED: ASPIRIN 81 MG ECTAB PO SCH (09:00)
[2021-10-21] MEDS ORDERED: SOTALOL HCL 80 MG TAB PO SCH (09:00)
[2021-10-21 12:40] LABS: Partial Thromboplastin Ratio 1.4; Partial Thromboplastin Time 36.9 Seconds (21.0-31.0)
--- NOTE | 2021-10-21 12:50 | Cardiology Consultation ---
Date of Consultation October 21, 2021 History of Present Illness Requesting Physician: Known repair of tetralogy of Fallot with a history of SVT and symptomatic palpitations last evening Attending Physician: Ashok Wasserman History of Present Illness Patient was admitted after 2 hours of palpitations that started while playing basketball. He notes he had a sudden onset of feeling his heart racing it was about 200 bpm. This is similar to what he has had in the past. He notes initially he was placed on sotalol 160 mg daily it was then reduced to 120 mg daily secondary to what sounds like QT prolongation. Ultimately he ended up on 80 mg twice a day and about a year or so ago was with use to 40 mg twice daily. He follows with adult congenital heart disease at the [facility]. He notes his last episode of palpitations was over a year ago and this is the first time he has had palpitations on the 40 mg dose of sotalol twice a day. He feels well this morning. He had some lightheadedness at the tail end of his 2 hours of palpitations. He denies any presyncope syncope falls lower extremity edema or symptoms of claudication. He denies any change in his functional capacity. He can walk on campus and he notes playing basketball he feels as well as he normally would. His LFTs are significantly elevated in the past he has had pretty significantly elevated blood alcohol levels with ALLISON of 270 in the fall. He notes and it sounds like he binge drinks on the weekends pretty heavily. He was last seen in [place] this past September and is usually seen by the [facility] attendings once a year the structural heart disease team once a year. He is known based on his most recent echocardiogram to have mild to moderate valvular pulmonic stenosis with trace valvular pulmonic regurgitation and normal LV function with mildly reduced RV function. This morning he feels well and feels back to himself.The rest of a complete review of systems is negative Allergies Allergy/AdvReac Type Severity Reaction Status Date / Time cephalexin [From Keflex] Allergy Unknown Unknown Verified 10/21/21 02:28 Home Medications Medication Instructions Recorded Confirmed Type sotalol 80 mg tablet 40 mg PO DAILY 05/26/19 10/21/21 History aspirin 81 mg tablet,delayed 81 mg PO DAILY 10/21/21 10/21/21 History release Patient History Medical History H/O supraventricular tachycardia Long-term use of aspirin therapy Tetralogy of Fallot Surgical History Heart valve replaced History of heart surgery Social History Smoking Status: Never smoker Hx Alcohol Use: Yes Alcohol type: beer Hx Substance Use: No Preferred Language: Belarusian Communication Ability: Effective Vp Legal Affairs Required: No Beliefs That Will Affect Care: None Current Living Situation: Alone Current Living Situation Comment: [employer] student Feels Safe at Home: Yes Safety Concerns: Feels Safe At This Time Assistive Devices: None Results & Data ([facility]) Vital Signs (Past 12 Hours) Vital Signs Temp Pulse Pulse Resp BP Pulse Ox 10/21/21 11:44 56 L 18 124/83 97 10/21/21 07:00 54 L 20 121/76 96 10/21/21 06:00 58 L 18 120/75 98 10/21/21 04:00 58 L 18 130/83 98 10/21/21 03:03 74 18 132/87 100 10/21/21 02:00 66 20 130/97 100 10/21/21 01:40 70 22 129/86 100 10/21/21 01:22 36.3 C L 123 H 19 91 He is awake alert and oriented x3 he is in no acute distress HEENT: 2+ carotid upstroke sounds or carotid bruits Lungs: Clear to auscultation bilaterally no rales rhonchi or wheezing Heart: Regular rate and rhythm he has a crescendo decrescendo murmur which is mid peaking and loudest at the left upper sternal border radiating out across his clavicle. There was a soft diastolic murmur present in the pulmonic region. There was a slight RV lift. Abdomen: Soft nontender distended positive bowel sounds Extremities: No clubbing cyanosis or edema Psychiatric: His affect appeared appropriate His inpatient diagnostic studies including his CAT scan and laboratory studies were reviewed EKGs in sinus rhythm as he had already converted by the time he came to the hospital revealed sinus rhythm nondiagnostic inferior Q waves initially he had ST depression which on his follow-up EKG at 5:00 this morning had completely resolved next line IMPRESSIONS: 1. history of SVT on 40 mg of sotalol twice daily 2. History of tetralogy of Fallot status post VSD repair and placement of a [employer] PPV 25 pulmonary valve with mild to moderate pulmonic stenosis number 3. Dilated right ventricle with mild RV dysfunction Normal LV size and function with an EF in the range of 55% 3. History of an EP study with inability to induce an atrial arrhythmia 4. Markedly elevated LFTs likely on the basis of alcohol consumption 5. Acute kidney injury with associated electrolyte abnormalities 6. Elevated troponin secondary to demand ischemia History motoring is related to demand ischemia this is not related to acute coronary syndrome. His heparin can be discontinued. I did asked that he reach out to his providers at the [facility] to let them know he had another episode of SVT. This is the first time he has had an episode on the lower dose of sotalol 40 mg twice a day. If he has more recurrent episodes given his relative bradycardia as there is no room for beta- blockers they may need to consider increasing his sotalol dose to 80 mg twice a day after admission to the hospital watching for excessive bradycardia He did receive IV fluids given his acute kidney injury additionally his potassium should be greater than 4 and his magnesium greater than 2 with the use of sotalol. His QTC on his EKG is normal. I did discuss with him as his liver enzymes are significantly abnormal he has had an elevated blood alcohol level of 270 in the fall that he needs to reduce his alcohol consumption especially in the light of being on sotalol and the risk that can be associated with hypokalemia hypomagnesemia and acute kidney injury of having torsade the point with sotalol therapy. This was discussed with the nursing staff as well as the patient. 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
[2021-10-21 14:55] LABS: BUN Creatinine Ratio 13.4 (10-20); Calcium 8.6 mg/dl (8.5-10.1); Est GFR (African American) 108.3 ml/min; Est GFR (Non-African American) 93.4 ml/min; Magnesium 2.1 mg/dl (1.7-2.4); Potassium 4.4 mmol/L (3.5-5.1)
--- NOTE | 2021-10-21 15:18 | XCELERA ---
[id number] \\[id number]
[2021-10-22 06:42] LABS: Hepatitis A Antibody IgM NON-REACTIVE (NON-REACTIVE); Hepatitis B Core Antibody IgM NON-REACTIVE (NON-REACTIVE)
[2021-10-22 09:38] LABS: Hepatitis C IgG 13Yrs+Old_Rflx Neg (Neg)
[2021-10-22 09:40] LABS: Hepatitis B Surf Ag Rflx Conf Neg (Neg)
--- NOTE | 2021-10-22 23:50 | Electrocardiogram Report ---
Test Reason : Blood Pressure : / mmHG Vent. Rate : 069 BPM Atrial Rate : 069 BPM P-R Int : 128 ms QRS Dur : 100 ms QT Int : 402 ms P-R-T Axes : 000 111 069 degrees QTc Int : 430 ms Sinus rhythm Right axis deviation ST depression, consider subendocardial injury Abnormal ECG No previous ECGs available Confirmed by Ernst Foley ([id number]) on 10/22/2021 11:50:20 PM Referred By: REFERRED SELF Confirmed By:Ernst Foley
--- NOTE | 2021-10-22 23:50 | Electrocardiogram Report ---
Test Reason : Blood Pressure : / mmHG Vent. Rate : 066 BPM Atrial Rate : 066 BPM P-R Int : 122 ms QRS Dur : 100 ms QT Int : 418 ms P-R-T Axes : -15 097 043 degrees QTc Int : 438 ms Normal sinus rhythm Rightward axis Nonspecific ST abnormality Abnormal ECG When compared with ECG of 21-OCT-2021 01:37, ST less depressed in Anterolateral leads Confirmed by Ernst Foley ([id number]) on 10/22/2021 11:50:37 PM Referred By: REFERRED SELF Confirmed By:Ernst Foley
--- NOTE | 2021-10-22 23:52 | Electrocardiogram Report ---
Test Reason : Blood Pressure : / mmHG Vent. Rate : 063 BPM Atrial Rate : 063 BPM P-R Int : 120 ms QRS Dur : 106 ms QT Int : 434 ms P-R-T Axes : -16 071 028 degrees QTc Int : 444 ms Normal sinus rhythm When compared with ECG of 21-OCT-2021 01:51, No significant change was found Confirmed by Ernst Foley ([id number]) on 10/22/2021 11:52:10 PM Referred By: REFERRED SELF Confirmed By:Ernst Foley
--- NOTE | 2021-10-24 23:30 | Discharge Summary ---
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 He has history of SVT for which he takes daily Sotalol as well as ASA. He has had 4 episodes of tachycardia over the last 4 years that has been self limiting. Patient was playing basketball last night when he felt his heart racing. This started around 23:00. He returned to his apartment and drank a lot of water to try to get the palpitations to stop. After drinking the water he felt bloated and nauseated so he induced vomiting x 1 episode. He presents to the ER due to prolonged duration of palpitations. Patient had a second episode of vomiting in the waiting room. He also reports a brief episode of lightheadedness and syncope which lasted only a few seconds. N o head trauma. He denies chest pain, cough, SOB. Denies abdominal pain. Had some nausea and vomiting x 2 as above, otherwise, no abdominal complaints. Denies fever, chills, NELSON, malaise. Palpitations resolved around 01:15. Upon arrival patient tachycardic with HR of 123. His initial EKG showed ST depressions in leads I, II, V4-V6. Lab results as below, troponin elevated at 0.48 --> 1.39. Patient with abnormals LFTs - OOB=412, BNS=524, Tbili=1.7. CT of the Abdomen and pelvis originally concerning for acute cholecystitis. Ultrasound does not support this. General Surgery was consulted re: LFT abnormality and possible cholecystitis Patient is resting comfortably. Sinus bradycardia noted on monitor. Has no complaints at this time. ER Course: ASA 324mg, NSS x 2L, Heparin gtt Principal Diagnosis demand ischemia Discharge Exam Constitutional WD/WN, vitals as above Eyes PERRL, conjunctivae normal, anicteric sclerae ENMT external ear and nose normal, oropharynx normal Neck trachea midline, no thyromegaly Respiratory normal respiratory effort, lungs clear to auscultation Cardiovascular RRR, no murmur, no edema Gastrointestinal (Abdomen) normal bowel sounds, soft, nontender, no hepatosplenomegaly Discharge Data Allergies Allergy/AdvReac Type Severity Reaction Status Date / Time cephalexin [From Keflex] Allergy Unknown Unknown Verified 10/21/21 02:28 Consultations 10/21/21 04:30 ED Decision to Admit Stat 10/21/21 04:49 Consult Cardiology Routine 10/21/21 04:53 Consult General Surgery Stat 10/21/21 05:22 Consult Cardiology Stat Ordered Studies 10/21/21 02:24 US gallbladder Urgent 10/21/21 02:27 CT abd pelvis IV con only Urgent CT angio chest PE protocol Urgent Hospital Course (1) Palpitations: 21yo male with 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 Found with elevation of troponin and EKG changes. History of SVT with appx 4 episodes of palpitations in the past. EKG with NSR at 69bpm. Shortened NE interval at 102. No delta wave Electrolytes are optimized -Admit to medical with telemetry -Check 2D echo -Check ESR and CRP -Trend troponin: peaked at 1.8 -Continue Sotalol At discharge: ghada continue sotalol, and hold strenuous exercise until cleared by cardio appreciate input from cardio: Discussed with mom via phone who is a nurse and well veresed in his care. He had VT not SVT in the past. Wasn't inducible at the time of EP study and decision for Sotalol. Dose has been reduced as he has done well and has sinus bradycardia at baseline. Once electrolytes improve (NA) and make sure K+ and Mg++ ok he can be d/shanell. Troponin is purely from demand ischemia from VT at 200 BPM for 2 hours with mild RVH and NOT ACS. [facility]so [place] Pulmonic valve is known to have mild to moderate Valvular obstruction contributing. LFT's and NA and SNEHA likely from ETOH and poor systtemic perfusion for 2 hours while in VT. Mom will contact [facility] to arrange EP visit as an outpatient to discuss changing meds. First episode of VT in over a year (2) Elevated troponin: Possibly secondary to supply-demand mismatch in setting of prolonged palpitations. Consider myocarditis with elevation of WBC count + troponin. Patient denies recent illness, vaccination, fever, chills, chest pain. -Heparin gtt initiated in ER - will continue for now -Cardiology consultation appreciated -Continue to trend troponin to peak (3) Elevated LFTs: Patient with elevation of AST, ALT and Tbili. CT Abdomen by STAT rad concerning for acute cholecystitis which was not seen on US. Patient has had NO abdominal pain, fever, RUQ discomfort. Do not strongly suspect acute cholecystitis. -Check ferritin, acetaminophen, acute hepatitis panel -Repeat LFTs -Consider HIDA scan, GI consultation pending results (4) SNEHA (acute kidney injury): Elevation of BUN to 27, Cr to 1.64 from baseline of 14 and 1.05. -LR at 125mL/hr x 1 liter -Repeat labs at 12:00 F/E/N - LR at 125mL/hr x 1, electrolytes WNL - will give 1gm Mg for level of 1.7, regular diet as tolerated Ppx - Heparin gtt Code - Full Dispo - Admit to medical with telemetry Total Time Total Time Spent Total Time Spent (In Minutes): 32 Discharge Plan Discharge Items Patient Disposition: Home - Self-Care Reason For Visit: PALPITATIONS, ELEVATED TROPONIN Discharge Diagnosis: palpitations, elevated troponin Activity: As commented below Activity Comment: NO STRENOUS ACTIVITY UNTIL SEEN BY EP, or cleared by Cardiology Non-emergency contact: Primary Care Provider Call non-emergency contact if: you have any medication questions Follow-up/Referrals: [facility] [Primary Care Provider] - Diet: Regular Addtl Attending Provider Instructions: As per cardiology recommendations: followup with quality improvement engineer from [place] Pending Studies at Discharge: No Stand-Alone Forms: My [facility], Smoking Cessation Medications and DC Order Prescriptions: Continued sotalol 80 mg Tablet 40 mg PO DAILY RF: 0 aspirin 81 mg Tablet,Delayed Release (Dr/Ec) 81 mg PO DAILY RF: 0 Discharge Orders: Discharge Order (Routine); Ordered 10/21/21 Ordered By: Ashok Wasserman Admission Data Admit Date/Time: 10/21/21 04:49 Attending Provider: Ashok Wasserman Admit Provider: Christie Rivers Primary Care Provider: [facility] Other Providers: Jacobo Barajas ; Christie Rivers ; Maxwell Guzmán ; Ronald Walton Other Interventions: Discharge Summary Assessment (RN) Last Done: 10/21/21 16:02 Coding Level of Care Code OBSERV/HOSP SAME DATE LVL 3 Diagnoses Palpitations R00.2 Elevated troponin R77.8 Elevated LFTs R79.89 SNEHA (acute kidney injury) N17.9
== END 2021-10-21 16:00 | disposition home or self-care (01) | DRG 309 ==
LOC: ED 01:17 → EDINP 04:49 → SUATTDRO 04:49 → EDINP 05:24